=== PATIENT | male | born 2000 | race Asian ===

== ENCOUNTER 2020-04-09 08:32 | Emergency (ER) | payer BC, OTHER ==
[~2020-04-09] VITALS: Ht 188 cm; Wt 69.4 kg
[2020-04-09 09:08] VITALS: BP 122/71
--- NOTE | 2020-04-09 09:10 | NUR ---
PT WITH C/O CHEST PAIN BEGINNING APPOX 0800 THIS AM, AWOKE HIM FROM SLEEP. PT WITH RECENT DX OF PERICARDITIS, FINISHED IBU MEDICATION A FEW DAYS AGO, PT STATES IT CAME BACK JUST IF WAS BEFORE. 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
--- NOTE | 2020-04-09 09:14 | NUR ---
ERMD IN TO EVAL PT
== END 2020-04-09 10:17 | disposition home or self-care (01) ==
LOC: ED 08:55
DX: R07.89 Other chest pain (principal)
CPT/HCPCS: 71045; 93005; 99283

== ENCOUNTER 2020-04-16 18:49 | Emergency (ER) | payer BC ==
[~2020-04-16] VITALS: Ht 188 cm; Wt 68.5 kg
--- NOTE | 2020-04-16 19:09 | NUR ---
PT STATES HAVING CHEST PAIN/TIGHTNESS, AND BLACKING OUT IN THE MORNING TODAY. PT STATES AT THE END OF MARCH PT STARTED HAVING CHEST PAIN AND DIZZINESS AT THE END OF MARCH THIS YEAR. PT WENT TO HOSPITAL IN [place], [place] AND WAS TOLD HE HAS PERICARDITIS. PT THEN WENT TO [facility] EAR[facility] TODAY AFTER FEELING MORE PAIN AND WAS TOLD HE HAD NO ISSUES. PT THEN WENT BACK TO ROOM AND STATED HE WOKE UP ON FLOOR. PT STATES FEELING A LITTLE DIZZY RIGHT NOW AND SOME CHEST TIGHTNESS, BUT NOT BAD EARLIER TODAY. PT HAD EKG DONE IN TRIAGE, PT PLACED ON MONITORS, ERP AT BEDSIDE FOR EVAL.
[2020-04-16 19:56] LABS: BASOPHILS # (AUTO) 0.02 x10^3/uL (0-0.3); BASOPHILS % (AUTO) 1 % (0-1); EOSINOPHILS # (AUTO) 0.07 x10^3/uL (0-0.8); EOSINOPHILS % (AUTO) 1 % (1-7); LYMPHOCYTES # (AUTO) 1.29 x10^3/uL (1-6.1); LYMPHOCYTES % (AUTO) 26 % (22-44); MD NO; MEAN CORPUSCULAR HEMOGLOBIN 28.1 pg (27.5-34.5); MEAN CORPUSCULAR HGB CONC 32.6 g/dL (33.2-36.2); MEAN CORPUSCULAR VOLUME 85.9 fL (81-97); MEAN PLATELET VOLUME 9.5 fL (7.4-10.4); MONOCYTES # (AUTO) 0.51 x10^3/uL (0-1.4); MONOCYTES % (AUTO) 10 % (2-9); NEUTROPHILS # (AUTO) 3.14 x10^3/uL (1.8-8.0); NEUTROPHILS % (AUTO) 62 % (42-75); PLATELET COUNT 211 x10^3/uL (130-400); RED BLOOD COUNT 5.19 x10^6/uL (4.38-5.82); RED CELL DISTRIBUTION WIDTH 15.9 % (9.4-14.8)
[2020-04-16 20:03] LABS: ALBUMIN 4.1 g/dL (3.4-5.0); ANION GAP 7 mmol/L (5-15); CALCIUM 9.5 mg/dL (8.5-10.1); CHLORIDE 109 mmol/L (98-107)
[2020-04-16 20:09] LABS: C-REACTIVE PROTEIN, QUANT 0.04 mg/dL (0.02-0.49); CREATININE 1.13 mg/dL (0.7-1.3)
[2020-04-16 20:52] VITALS: BP 103/61
--- NOTE | 2020-04-16 20:56 | NUR ---
ERP AT BEDSIDE
== END 2020-04-16 21:20 | disposition home or self-care (01) ==
LOC: ED 20:02
DX: R55 Syncope and collapse (principal); R07.89 Other chest pain; R00.0 Tachycardia, unspecified
CPT/HCPCS: 36415; 80048; 82040; 85025; 85379; 86140; 93005; 99284

== ENCOUNTER 2021-01-13 03:47 | Emergency (ER) | payer BC ==
[~2021-01-13] VITALS: Ht 185.4 cm; Wt 70.8 kg
[2021-01-13 04:53] LABS: BASOPHILS % (AUTO) 1 % (0-1); EOSINOPHILS % (AUTO) 3 % (1-7); LYMPHOCYTES % (AUTO) 42 % (22-44); MEAN CORPUSCULAR HEMOGLOBIN 30.3 pg (27.5-34.5); MEAN CORPUSCULAR HGB CONC 33.6 g/dL (33.2-36.2); MEAN PLATELET VOLUME 9.6 fL (7.4-10.4); MONOCYTES % (AUTO) 9 % (2-9); NEUTROPHILS % (AUTO) 45 % (42-75); PLATELET COUNT 196 x10^3/uL (130-400); RED BLOOD COUNT 5.06 x10^6/uL (4.38-5.82); RED CELL DISTRIBUTION WIDTH 13.3 % (9.4-14.8)
[2021-01-13 04:56] LABS: ALBUMIN 4.2 g/dL (3.4-5.0); ANION GAP 4 mmol/L (5-15); CALCIUM 9.5 mg/dL (8.5-10.1); CHLORIDE 108 mmol/L (98-107)
[2021-01-13 05:07] LABS: CREATININE 1.07 mg/dL (0.7-1.3); TROPONIN I < 0.015 ng/mL (0.000-0.045)
[2021-01-13 05:12] VITALS: BP 122/76
== END 2021-01-13 05:29 | disposition home or self-care (01) ==
LOC: ED 05:23
DX: R07.89 Other chest pain (principal); R00.2 Palpitations
CPT/HCPCS: 36415; 71046; 80048; 82040; 84443; 84484; 85025; 93005; 99285